=== PATIENT | female | born 1990 | race Two or more races ===

== ENCOUNTER 2018-09-18 10:42 | Emergency (ER) | payer OTHER ==
[~2018-09-18] VITALS: Ht 157.5 cm; Wt 56.7 kg
[~2018-09-18 10:42] MED LIST: MOTRIN800 MG PO; SEPTRA DS TABLE1 TAB PO
== END 2018-09-18 13:14 | disposition home or self-care (01) ==
LOC: ER 10:42
DX: N76.4 Abscess of vulva (principal)